=== PATIENT | male | born 2000 | race Caucasian/White ===

== ENCOUNTER 2019-06-18 16:16 | Emergency (ER) | payer OTHER, BC ==
[2019-06-18 16:29] VITALS: BP 150/88; PULSE 91
[2019-06-18] MEDS ORDERED: Diphtheria,Pertussis(Acell),Tetanus Vaccine 0.5 ML Syringe IM ONE (16:29)
[2019-06-18] MEDS ORDERED: Sodium Chloride 0.9% 10 ML Syringe FLUSH PRN (16:29)
[2019-06-18] MEDS ORDERED: ceFAZolin 1 GM in Premix Bag 1 BAG IV ONE (16:29)
--- NOTE | 2019-06-18 16:49 | EDM.PDOC ---
ED HPI GENERAL MEDICAL PROBLEM - General Chief Complaint: Upper Extremity Injury/Pain Stated Complaint: LT PINKY SKIN IS STRIPPED OFF Time Seen by Provider: 06/18/19 16:27 Source of Information: Reports: Patient History Limitations: Reports: No Limitations - History of Present Illness INITIAL COMMENTS - FREE TEXT/NARRATIVE: Patient's unfortunate 19-year-old male who presents emergency Department today with complaint of partially dictation of a left small finger. He was in his normal state of health until approximately 1 PM this afternoon when he was working on the oil rig and the tongs caught his left finger which caused a irritation of the distal third of his distal phalanx and in no full vision of the dorsum skin to the middle phalanx Left Finger-Little Pain Score (Numeric/FACES): 0 - Related Data Allergies Allergy/AdvReac Type Severity Reaction Status Date / Time No Known Allergies Allergy Verified 02/29/16 16:43 Home Meds: Home Meds . [No Known Home Meds] 06/18/19 [History] Past Medical History - Past Health History Medical/Surgical History: Denies Medical/Surgical History Musculoskeletal History: Reports: Other (See Below) Other Musculoskeletal History: fractured left arm 2016-has pins and plates Social & Family History - Tobacco Use Smoking Status *Q: Current Every Day Smoker Years of Tobacco use: 5 Packs/Tins Daily: 0.2 - Caffeine Use Caffeine Use: Reports: None - Recreational Drug Use Recreational Drug Use: No Review of Systems - Review of Systems Review Of Systems: See Below Musculoskeletal: Reports: Hand Pain, Joint Swelling ED EXAM, GENERAL - Physical Exam Exam: See Below Exam Limited By: No Limitations General Appearance: Alert, WD/WN, Mild Distress Head: Atraumatic, Normocephalic Neck: Normal Inspection, Supple, Non-Tender, Full Range of Motion Respiratory/Chest: No Respiratory Distress, Lungs Clear, Normal Breath Sounds, No Accessory Muscle Use, Chest Non-Tender Cardiovascular: Normal Peripheral Pulses, Regular Rate, Rhythm, No Edema, No Gallop, No JVD, No Murmur, No Rub GI/Abdominal: Normal Bowel Sounds, Soft, Non-Tender Back Exam: Normal Inspection, Full Range of Motion, NT Extremities: Other (Patient has a palpitation of the distal third of the distal phalanx of the left small finger with avulsion of the skin to the middle phalanx on the dorsum of the left small finger no other trauma) Neurological: Alert, Oriented Skin Exam: Warm, Dry, No Rash Course - Vital Signs Last Recorded V/S: Last Vital Signs Temp 98.9 F 06/18/19 16:28 Pulse 91 06/18/19 16:28 Resp 20 06/18/19 16:28 BP 150/88 H 06/18/19 16:28 Pulse Ox 99 06/18/19 16:28 - Orders/Labs/Meds Orders: Active Orders 24 hr Category Date Time Status Vaccines to be Administered [RC] PER UNIT ROUTINE Care 06/18/19 16:30 Active Sodium Chloride 0.9% [Saline Flush] Med 06/18/19 16:29 Active 10 ml FLUSH ASDIRECTED PRN Saline Lock Insert [OM.PC] Stat Oth 06/18/19 16:29 Ordered Medication Orders Sodium Chloride (Saline Flush) 10 ml FLUSH ASDIRECTED PRN PRN Reason: Keep Vein Open Last Admin: 06/18/19 16:50 Dose: 10 ml Meds: Medications Generic Name Dose Route Start Last Admin Trade Name Freq PRN Reason Stop Dose Admin Sodium Chloride 10 ml 06/18/19 16:29 06/18/19 16:50 Saline Flush FLUSH 10 ml ASDIRECTED PRN Administration Keep Vein Open Discontinued Medications Generic Name Dose Route Start Last Admin Trade Name Freq PRN Reason Stop Dose Admin Diphtheria/Tetanus/Acell Pertussis 0.5 ml 06/18/19 16:29 06/18/19 16:52 Adacel IM 06/18/19 16:30 0.5 ml .ONCE ONE Administration Cefazolin Sodium/Dextrose 1 gm 50 mls @ 100 mls/hr 06/18/19 16:29 06/18/19 16 :51 / Premix IV 06/18/19 16:58 100 mls/hr ONETIME ONE Administration Morphine Sulfate 2 mg 06/18/19 17:15 Morphine IVPUSH 06/18/19 17:16 ONETIME ONE Ondansetron HCl 4 mg 06/18/19 17:15 Zofran IVPUSH 06/18/19 17:16 ONETIME ONE - Re-Assessments/Exams Free Text/Narrative Re-Assessment/Exam: Amputation distal third left distal phalanx small finger Free Text/Narrative Re-Assessment/Exam: 06/18/19 17:22 Scars case with at [facility] who accepts patient in transfer Departure - Departure Time of Disposition: 17:22 Disposition: DC/Tfer to Hospice-Med Fac [facility] Clinical Impression: Amputation of finger of left hand Qualifiers: Encounter type: initial encounter Qualified Code(s): S68.119A - Complete traumatic metacarpophalangeal amputation of unspecified finger, initial encounter - Discharge Information Referrals: PCP,None [Primary Care Provider] - Forms: ED Department Discharge Sepsis Event Note - Evaluation Sepsis Screening Result: No Definite Risk - Focused Exam Vital Signs: Vital Signs Temp Pulse Resp BP Pulse Ox 06/18/19 16:28 98.9 F 91 20 150/88 H 99 Date Exam was Performed: 06/18/19 Time Exam was Performed: 17: - My Orders Last 24 Hours: My Active Orders 06/18/19 16:29 Sodium Chloride 0.9% [Saline Flush] 10 ml FLUSH ASDIRECTED PRN Saline Lock Insert [OM.PC] Stat 06/18/19 16:30 Vaccines to be Administered [RC] PER UNIT ROUTINE - Assessment/Plan Last 24 Hours: My Active Orders 06/18/19 16:29 Sodium Chloride 0.9% [Saline Flush] 10 ml FLUSH ASDIRECTED PRN Saline Lock Insert [OM.PC] Stat 06/18/19 16:30 Vaccines to be Administered [RC] PER UNIT ROUTINE
[2019-06-18] MEDS ORDERED: Morphine 2 MG/ML Syringe IVPUSH ONE (17:15)
[2019-06-18] MEDS ORDERED: Ondansetron 4 MG/2 ML SDV IVPUSH ONE (17:15)
--- NOTE | 2019-06-18 17:15 | CR ---
Left hand: Four views of the left hand were obtained. Soft tissue and bony amputation is noted within the distal left 5th finger. Small bony densities which are compatible with old injury is noted off the ulnar styloid process. Bone island is noted within the navicular bone. Plate and screws are partially seen within the distal radius and ulna. No additional abnormality is appreciated. Impression: 1. Soft tissue and bony amputation within the distal left 5th finger. 2. Other findings which are felt to be incidental. Diagnostic code #3 This report was dictated in [place] Standard Time
== END 2019-06-18 18:00 | disposition hospice, inpatient (51) ==
LOC: JD.ED 16:16
DX: S68.117A Complete traumatic metacarpophalangeal amputation of left little finger, initial encounter (principal); F17.210 Nicotine dependence, cigarettes, uncomplicated; Z23 Encounter for immunization; W23.0XXA Caught, crushed, jammed, or pinched between moving objects, initial encounter
CPT/HCPCS: 73130; 90471; 90715; 96365; 96375; 99285; J0690; J2270; J2405; 99284

== ENCOUNTER 2020-02-04 12:54 | Emergency (ER) | payer BC, OTHER ==
[2020-02-04 13:07] VITALS: BP 117/72; PULSE 68
--- NOTE | 2020-02-04 13:44 | CR ---
Left forearm: 2 views of the left forearm were obtained. Comparison: Prior fluoroscopic spot view study showing operative reduction and fixation dated 03/01/16. Plate and screws are noted within the distal radius and ulna. Hardware fixes old healed fractures. 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 No acute abnormality is appreciated. No abnormal lucency around the hardware is seen. Impression: 1. Findings as noted above. 2. Nothing acute is appreciated. Diagnostic code #2 This report was dictated in MDT
--- NOTE | 2020-02-04 14:04 | EDM.PDOC ---
ED HPI GENERAL MEDICAL PROBLEM - General Chief Complaint: Upper Extremity Injury/Pain Stated Complaint: L ARM INJURY Time Seen by Provider: 02/04/20 13:05 Source of Information: Reports: Patient History Limitations: Reports: No Limitations - History of Present Illness INITIAL COMMENTS - FREE TEXT/NARRATIVE: Patient is a 20-year-old male who presents with complaints of pain to his left forearm. Back in 2016, he had a fracture of the distal radius and ulna and had ORIF completed. He states for the last month whenever he turns his wrist he feels a clicking in the area of the hardware. Today he was lifting some furniture and felt a strong pop that is in a shooting pain up his arm and made him lose strength in his hand. The pain in his hand has resolved, however he does still get shooting pains up his arm intermittently. He is concerned that he has "a loose screw ". Left Middle Arm Pain Score (Numeric/FACES): 5 - Related Data Allergies Allergy/AdvReac Type Severity Reaction Status Date / Time No Known Allergies Allergy Verified 02/29/16 16:43 Home Meds: Home Meds . [No Known Home Meds] 06/18/19 [History] Past Medical History - Past Health History Medical/Surgical History: Denies Medical/Surgical History Musculoskeletal History: Reports: Amputation, Other (See Below) Other Musculoskeletal History: fractured left arm 2015-has pins and plates, left tip of pinky amputation 2019 Social & Family History - Family History Family Medical History: Noncontributory - Tobacco Use Smoking Status *Q: Never Smoker Second Hand Smoke Exposure: No - Caffeine Use Caffeine Use: Reports: None - Recreational Drug Use Recreational Drug Use: No Review of Systems - Review of Systems Review Of Systems: Comprehensive ROS is negative, except as noted in HPI. ED EXAM, GENERAL - Physical Exam Exam: See Below Exam Limited By: No Limitations General Appearance: Alert, WD/WN, No Apparent Distress Respiratory/Chest: No Respiratory Distress, Lungs Clear, Normal Breath Sounds, No Accessory Muscle Use, Chest Non-Tender Cardiovascular: Normal Peripheral Pulses, Regular Rate, Rhythm, No Edema, No Gallop, No JVD, No Murmur, No Rub Extremities: Normal Inspection, Normal Range of Motion, Non-Tender, Normal Capillary Refill, No Pedal Edema Neurological: Alert, Oriented, CN II-XII Intact, Normal Cognition, Normal Gait, Normal Reflexes, No Motor/Sensory Deficits Psychiatric: Normal Affect, Normal Mood Skin Exam: Warm, Dry, Intact, Normal Color, No Rash Course - Vital Signs Last Recorded V/S: Last Vital Signs Temp 98.5 F 02/04/20 13:04 Pulse 68 02/04/20 13:04 Resp 18 02/04/20 13:04 BP 117/72 02/04/20 13:04 Pulse Ox 97 02/04/20 13:04 - Re-Assessments/Exams Free Text/Narrative Re-Assessment/Exam: 02/04/20 14:27 X-ray of the left forearm was negative for any acute abnormalities. Hardware is in place and old fractures are healed. Called and spoke with orthopedist, Dr. Pena. He feels that there may be a tendon that is causing his symptoms. He recommends that he follow-up with him in the clinic this coming week. Discussed this with the patient he is in agreement. He will call to schedule appointment with Dr. Pena. Discharge instructions documented. Departure - Departure Time of Disposition: 14:27 Disposition: Home, Self-Care 01 Condition: Good Clinical Impression: Forearm pain Qualifiers: Laterality: left Qualified Code(s): M79.632 - Pain in left forearm - Discharge Information *PRESCRIPTION DRUG MONITORING PROGRAM REVIEWED*: No *COPY OF PRESCRIPTION DRUG MONITORING REPORT IN PATIENT LEONARDO: No Referrals: Kirby Pena MD [Physician] - Forms: ED Department Discharge Additional Instructions: You were seen in the emergency department today for pain to your left forearm after lifting furniture as well as a one-month history of clicking in the area of your hardware with rotating your wrist. An x-ray of your forearm was completed and was found to be normal. We did speak with Dr. Pena and he is concerned that your tendon could be causing the symptoms. He requested that you follow-up with him in the clinic this coming week. Recommend that you call today to schedule appointment with Dr. Pena. The number to schedule with him as listed below. You may use [id number] Tylenol or ibuprofen as needed for discomfort. Return to the ER as needed. Sepsis Event Note (ED) - Evaluation Sepsis Screening Result: No Definite Risk - Focused Exam Vital Signs: Vital Signs Temp Pulse Resp BP Pulse Ox 02/04/20 13:04 98.5 F 68 18 117/72 97
== END 2020-02-04 14:38 | disposition home or self-care (01) ==
LOC: JD.ED 12:54
DX: M79.632 Pain in left forearm (principal)
CPT/HCPCS: 73090-26-LT; 73090-LT; 99282; 99283-25

== ENCOUNTER 2020-03-18 07:37 | Day surgery (SDC) | payer OTHER ==
[~2020-03-18 07:37] MED LIST: Dexamethasone 4 MG/ML 5 ML MDV ONE; Ketorolac 30 MG/ML SDV ONE; Lactated Ringers 1,000 ML IV SCH; Lactated Ringers 1,000 ML ONE; Lidocaine 1% 4 ML ONE; Lidocaine 1%/Sod Bicarbonate in NS 8.4% 1 ML Syringe IDERM PRN; Midazolam 1 MG/ML 2 ML SDV ONE; Ondansetron 4 MG/2 ML SDV ONE; Propofol 200 MG/20 ML SDV ONE; Sodium Chloride 0.9% 10 ML Syringe FLUSH PRN; ceFAZolin 1 GM Vial ONE; fentaNYL 100 MCG/2 ML SDV ONE
[2020-03-18] MEDS ORDERED: Bupivacaine 0.25% 10 ML SDV ONE ×2 (07:52→08:39)
[2020-03-18] MEDS ORDERED: fentaNYL 100 MCG/2 ML SDV IVPUSH PRN (08:02)
[2020-03-18] MEDS ORDERED: HYDROmorphone 0.5 MG/0.5 ML Syringe IVPUSH PRN (08:02)
[2020-03-18] MEDS ORDERED: Ondansetron 4 MG/2 ML SDV IVPUSH PRN (08:02)
--- NOTE | 2020-03-18 08:02 | PCM.PREANE ---
Preanesthetic Assessment - Procedure Proposed Procedure: Left Ulna hardware removal - Anesthesia/Transfusion/Family Hx Anesthesia History: Prior Anesthesia Without Reaction Family History of Anesthesia Reaction: No - Review of Systems General: No Symptoms Pulmonary: No Symptoms Cardiovascular: No Symptoms Gastrointestinal: No Symptoms Neurological: No Symptoms Other: Reports: None (Obesity) - Physical Assessment NPO Status Date: 03/17/20 NPO Status Time: 18:00 Weight: 109 kg ASA Class: 2 Mental Status: Alert & Oriented x3 Airway Class: Mallampati = 1 Dentition: Reports: Normal Dentition Thyro-Mental Finger Breadths: 3 Mouth Opening Finger Breadths: 3 ROM/Head Extension: Full Lungs: Clear to Auscultation, Normal Respiratory Effort Cardiovascular: Regular Rate, Regular Rhythm - Lab Values: Laboratory Last Values SARS-CoV-2 (PCR) Not detected (NOT DETECT) 03/15/20 11:30 MRSA (PCR) Negative 03/15/20 11:21 - Allergies Allergies/Adverse Reactions: Allergies Allergy/AdvReac Type Severity Reaction Status Date / Time No Known Allergies Allergy Verified 03/17/20 12:29 - Anesthesia Plan Pre-Op Medication Ordered: Anxiolytic - Acknowledgements Anesthesia Type Planned: General Anesthesia Pt an Appropriate Candidate for the Planned Anesthesia: Yes Alternatives and Risks of Anesthesia Discussed w Pt/Guardian: Yes Pt/Guardian Understands and Agrees with Anesthesia Plan: Yes PreAnesthesia Questionnaire - Past Health History Medical/Surgical History: Denies Medical/Surgical History HEENT History: Reports: Impaired Vision, Other (See Below) Other HEENT History: wears glasses Cardiovascular History: Reports: None Respiratory History: Reports: None Gastrointestinal History: Reports: None Genitourinary History: Reports: None SPECIALIST ICU History: Reports: None Musculoskeletal History: Reports: Other (See Below) Other Musculoskeletal History: left arm fracture with surgical repair, finger amputation Neurological History: Reports: None Psychiatric History: Reports: None Endocrine/Metabolic History: Reports: None Hematologic History: Reports: None Immunologic History: Reports: None Oncologic (Cancer) History: Reports: None Dermatologic History: Reports: None - Past Surgical History Head Surgeries/Procedures: Reports: None HEENT Surgical History: Reports: Tonsillectomy Cardiovascular Surgical History: Reports: None Respiratory Surgical History: Reports: None GI Surgical History: Reports: None Female Surgical History: Reports: None Male Surgical History: Reports: None Endocrine Surgical History: Reports: None Neurological Surgical History: Reports: None Musculoskeletal Surgical History: Reports: None Oncologic Surgical History: Reports: None Dermatological Surgical History: Reports: None - SUBSTANCE USE Smoking Status *Q: Never Smoker Recreational Drug Use History: No - HOME MEDS Home Medications: Home Meds Multivitamin [Daily Dewayne] 1 tab PO DAILY 03/17/20 [History] Acetaminophen/HYDROcodone [[place] 325-5 MG] 1 - 2 tab PO Q6H PRN #20 tablet 03/18/20 [Rx] - CURRENT (IN HOUSE) MEDS Current Meds: Current Medications Lactated Ringer's (Ringers, Lactated) 1,000 mls @ 125 mls/hr IV ASDIRECTED ANDREAS Stop: 03/18/20 23:00 Lidocaine/Sodium Bicarbonate (Buffered Lidocaine 1% In Ns 8.4%) 0.25 ml IDERM ONETIME PRN PRN Reason: Prior to IV Start Stop: 03/18/20 18:00 Sodium Chloride (Saline Flush) 10 ml FLUSH ASDIRECTED PRN PRN Reason: Keep Vein Open Stop: 03/18/20 18:00 Discontinued Medications Bupivacaine HCl (Sensorcaine-Mpf 0.25%) Confirm Administered Dose 10 ml .ROUTE .STK-MED ONE Stop: 03/18/20 07:53 Cefazolin Sodium (Ancef) Confirm Administered Dose 2 gm .ROUTE .STK-MED ONE Stop: 03/18/20 07:04 Dexamethasone (Dexamethasone) Confirm Administered Dose 20 mg .ROUTE .STK-MED ONE Stop: 03/18/20 07:05 Fentanyl (Sublimaze) Confirm Administered Dose 100 mcg .ROUTE .STK-MED ONE Stop: 03/18/20 07:05 Lactated Ringer's (Ringers, Lactated) Confirm Administered Dose 1,000 mls @ as directed .ROUTE .STK-MED ONE Stop: 03/18/20 07:04 Lidocaine HCl (Xylocaine-Mpf 1%) Confirm Administered Dose 4 mls @ as directed .ROUTE .STK-MED ONE Stop: 03/18/20 07:05 Ketorolac Tromethamine (Toradol) Confirm Administered Dose 30 mg .ROUTE .STK-MED ONE Stop: 03/18/20 07:04 Midazolam HCl (Versed 1 Mg/Ml) Confirm Administered Dose 2 mg .ROUTE .STK-MED ONE Stop: 03/18/20 07:05 Ondansetron HCl (Zofran) Confirm Administered Dose 4 mg .ROUTE .STK-MED ONE Stop: 03/18/20 07:04 Propofol (Diprivan 20 Ml) Confirm Administered Dose 400 mg .ROUTE .STK-MED ONE Stop: 03/18/20 07:04
[2020-03-18] MEDS ORDERED: HYDROmorphone 0.5 MG/0.5 ML Syringe ONE (08:25)
--- NOTE | 2020-03-18 09:23 | CR ---
Left wrist: Single fluoroscopic spot view of the left wrist was obtained utilizing C-arm device. Comparison: Prior left forearm study of 02/04/20. Study shows removal of plate and screws within the distal ulnar shaft. 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 Plate and screws remain within the distal radius. Fluoroscopy time given is 2 seconds. Impression: 1. Procedural study as described above. Diagnostic code #2 This report was dictated in MDT
--- NOTE | 2020-03-18 09:42 | PCM.POSTAN ---
POST ANESTHESIA ASSESSMENT - MENTAL STATUS Mental Status: Somnolent - VITAL SIGNS Vital Signs: Last Vital Signs Temp 36.7 C 03/18/20 07:45 Pulse 75 03/18/20 07:45 Resp 16 03/18/20 07:45 BP 127/79 03/18/20 07:45 Pulse Ox 96 03/18/20 07:45 0934 121/75 65 14 100% 97.3F - RESPIRATORY Respiratory Status: Respiratory Rate WNL, Airway Patent, O2 Saturation Stable, Supplemental Oxygen - CARDIOVASCULAR CV Status: Pulse Rate WNL, Blood Pressure Stable - GASTROINTESTINAL GI Status: No Symptoms - PAIN Pain Score: 0 - POST OP HYDRATION Hydration Status: Adequate & Stable
[2020-03-18] MEDS ORDERED: Ketorolac 30 MG/ML SDV IVPUSH ONE ×2 (10:15→13:00)
--- NOTE | 2020-03-18 10:34 | PCM48HPAN ---
Post Anesthesia Note - EVALUATION WITHIN 48HRS OF ANESTHETIC Vital Signs in Normal Range: Yes Patient Participated in Evaluation: Yes Respiratory Function Stable: Yes Airway Patent: Yes Cardiovascular Function Stable: Yes Hydration Status Stable: Yes Pain Control Satisfactory: Yes Nausea and Vomiting Control Satisfactory: Yes Mental Status Recovered: Yes Vital Signs: Last Vital Signs Temp 36.4 C 03/18/20 10:10 Pulse 55 L 03/18/20 10:10 Resp 16 03/18/20 10:10 BP 133/79 03/18/20 10:10 Pulse Ox 96 03/18/20 10:10
[2020-03-18 10:38] VITALS: BP 126/79; PULSE 64
--- NOTE | 2020-03-25 13:26 | PCM.OPNOTE ---
- General Post-Op/Procedure Note Date of Surgery/Procedure: 03/18/20 Operative Procedure(s): removal of deep hardware left ulna Pre Op Diagnosis: painful hardware left ulna Post-Op Diagnosis: Same Anesthesia Technique: General LMA, Local Primary Surgeon: Kirby Pena Anesthesia Provider: Aisha Medrano EBL in mLs: 5 Complications: None Condition: Good
--- NOTE | 2020-03-25 16:07 | OR ---
DATE OF OPERATION: 03/18/2020 SURGEON: Kirby Pena MD OPERATIVE PROCEDURE: Removal of deep hardware, left ulna. PREOPERATIVE DIAGNOSIS: Painful hardware, left ulna. POSTOPERATIVE DIAGNOSIS: Painful hardware, left ulna. ANESTHESIA: General LMA with local. TOY DESIGNER: None. ANESTHESIA PROVIDER: Leila Ayers. ESTIMATED BLOOD LOSS: 5 mL. COMPLICATIONS: None. CONDITION: Stable. DESCRIPTION OF PROCEDURE: The patient was identified in the preoperative holding area. Proper site was marked and identified by the surgeon. The patient was taken back to the operative theater where after adequate anesthesia, the patient's left upper extremity had a nonsterile tourniquet applied and then was sterilely prepped and draped in the usual sterile fashion. OR time-out was performed. The patient received 2 g IV Ancef. At this time, left upper extremity was exsanguinated and tourniquet was insufflated to 220 mmHg. Previous incision was utilized. This was taken down between the ECU and FCU tendon. This was taken to the plate. There was a small amount of bony overgrowth noted, but otherwise no signs of infection or other issues. Utilizing the previous screwdriver, all remaining screws were removed and the plate was removed. The patient was noted to have bony overgrowth, so I did use a rasp as well as a rongeur to smooth out any parts of bone. I did use a curette to cure out all the screw holes and then adequate saline was irrigated through the wound. I did utilize C-arm fluoroscopy to make sure the bone was good and then all plates and screws were removed. At this time, 3-0 Vicryl was used subcutaneously and carlos were used for closure of the skin. The patient tolerated the procedure well and sent to PACU in stable condition in a sterile soft dressing. OPERATION PERFORMED: MMODAL /[id number]
== END 2020-03-18 10:37 | disposition home or self-care (01) ==
LOC: JD.SDS 07:37
PROVIDERS: ATTEND Orthopaedic Surgery
DX: T84.84XA Pain due to internal orthopedic prosthetic devices, implants and grafts, initial encounter (principal); Z01.812 Encounter for preprocedural laboratory examination; Z20.828 Contact with and (suspected) exposure to other viral communicable diseases
CPT/HCPCS: 20680; 76000; 87635; 87641; J0690; J1100; J1170; J1885; J2001; J2250; J2704; J3490; J7120; 01830; J2405; J3010; U0002

== ENCOUNTER 2020-05-08 19:41 | Emergency (ER) | payer OTHER ==
[2020-05-08] MEDS ORDERED: Sodium Chloride 0.9% 10 ML Syringe FLUSH PRN (20:06)
[2020-05-08] MEDS ORDERED: Ondansetron 4 MG/2 ML SDV IVPUSH ONE (20:06)
[2020-05-08] MEDS ORDERED: Sodium Chloride 0.9% 1,000 ML IV SCH (20:15)
--- NOTE | 2020-05-08 20:25 | EDM.PDOC ---
ED HPI GENERAL MEDICAL PROBLEM - General Chief Complaint: Abdominal Pain Stated Complaint: RIGHT SIDE PAIN Time Seen by Provider: 05/08/20 20:03 Source of Information: Reports: Patient, RN Notes Reviewed History Limitations: Reports: No Limitations - History of Present Illness INITIAL COMMENTS - FREE TEXT/NARRATIVE: Patient is a 20-year-old male who presents to the ED for the evaluation of his right lower quadrant abdominal pain. He states that pain started at around 4 PM today. He states it is pretty intense right away sharp and stabbing, and rates it about a 5 out of 10 at this time. He notes that he is a very high pain threshold, so he is not entirely sure how painful it would be. He notes that it is in his right lower quadrant has not radiated anywhere. He is denying any fevers or chills, notes that his bowel movement was normal for him yesterday but have not had one today. He ate last at lunchtime, she he did get nauseated when the pain happened, he tried to make himself vomit but he could not make that happen. He notes that he is normally regular with his bowel movements and is not having any issues there, he is denying any urinary issues. He has not had any fevers or chills, cough or shortness of breath, he further denies any history of kidney stones or abdomen issues. He notes that he called a family member who used to be a doctor, and they told him to come to the ER for evaluation. Patient still retains his appendix and has not had any prior abdomen surgeries. Other Treatments CARGOMAN: none Right Lower Abdomen Pain Score (Numeric/FACES): 5 - Related Data Allergies Allergy/AdvReac Type Severity Reaction Status Date / Time No Known Allergies Allergy Verified 03/18/20 08:50 Home Meds: Home Meds Multivitamin [Daily Dewayne] 1 tab PO DAILY 03/17/20 [History] Past Medical History HEENT History: Reports: Impaired Vision, Other (See Below) Other HEENT History: wears glasses Musculoskeletal History: Reports: Other (See Below) Other Musculoskeletal History: left arm fracture with surgical repair, Left distal pinky finger amputation - Past Surgical History HEENT Surgical History: Reports: Tonsillectomy Social & Family History - Family History Family Medical History: Noncontributory - Tobacco Use Tobacco Use Status *Q: Never Tobacco User - Caffeine Use Caffeine Use: Reports: Energy Drinks - Recreational Drug Use Recreational Drug Use: No ED ROS GENERAL - Review of Systems Review Of Systems: Comprehensive ROS is negative, except as noted in HPI. ED EXAM, GI/ABD - Physical Exam Exam: See Below Exam Limited By: No Limitations General Appearance: Alert, WD/WN, No Apparent Distress Eyes: Bilateral: Normal Appearance Respiratory/Chest: No Respiratory Distress, Lungs Clear, Normal Breath Sounds, No Accessory Muscle Use, Chest Non-Tender Cardiovascular: Normal Peripheral Pulses, Regular Rate, Rhythm, No Murmur GI/Abdominal Exam: Normal Bowel Sounds, Soft, No Distention, No Mass, Tender (RLQ tenderness with direct palpation; with no rebound tenderness) Extremities: Normal Inspection, Normal Capillary Refill Neurological: Alert, Oriented, Normal Cognition, No Motor/Sensory Deficits Psychiatric: Normal Affect, Normal Mood Skin Exam: Warm, Dry, Intact, Normal Color, No Rash Course - Vital Signs Last Recorded V/S: Last Vital Signs Temp 98.0 F 05/08/20 20:07 Pulse 62 05/08/20 20:07 Resp 20 05/08/20 20:07 BP 118/73 05/08/20 20:07 Pulse Ox 95 05/08/20 20:07 - Orders/Labs/Meds Orders: Active Orders 24 hr Category Date Time Status Peripheral IV Care [RC] . DIRECTED Care 05/08/20 20:06 Active Abdomen Pelvis w Cont [CT] Stat Exams 05/08/20 20:06 Ordered Sodium Chloride 0.9% [Normal Saline] 1,000 ml Med 05/08/20 20:15 Active IV ASDIRECTED Sodium Chloride 0.9% [Normal Saline] 100 ml Med 05/08/20 22:00 Active IV ASDIRECTED Sodium Chloride 0.9% [Normal Saline] 100 ml Med 05/08/20 22:15 Active IV ASDIRECTED Sodium Chloride 0.9% [Saline Flush] Med 05/08/20 20:06 Active 10 ml FLUSH ASDIRECTED PRN Sodium Chloride 0.9% [Saline Flush] Med 05/08/20 22:00 Active 10 ml FLUSH BOLUS Peripheral IV Insertion Adult [OM.PC] Routine Oth 05/08/20 20:06 Ordered Medication Orders Sodium Chloride (Normal Saline) 1,000 mls @ 999 mls/hr IV ASDIRECTED ANDREAS Last Admin: 05/08/20 20:24 Dose: 999 mls/hr Documented by: [email or web address] Sodium Chloride (Normal Saline) 100 mls @ 60 mls/hr IV ASDIRECTED ANDREAS Sodium Chloride (Normal Saline) 100 mls @ 60 mls/hr IV ASDIRECTED ANDREAS Sodium Chloride (Saline Flush) 10 ml FLUSH ASDIRECTED PRN PRN Reason: Keep Vein Open Last Admin: 05/08/20 20:24 Dose: 10 ml Documented by: [id number] Sodium Chloride (Saline Flush) 10 ml FLUSH BOLUS ANDREAS Labs: Laboratory Tests 05/08/20 05/08/20 05/08/20 Range/Units 20:25 20:25 21:41 WBC 7.20 (4.23-9.07) K/mm3 RBC 4.50 L (4.63-6.08) M/mm3 Hgb 12.9 L D (13.7-17.5) gm/dl Hct 38.3 L (40.1-51.0) % MCV 85.1 (79.0-92.2) fl MCH 28.7 (25.7-32.2) pg MCHC 33.7 (32.2-35.5) g/dl RDW Std Deviation 40.4 (35.1-43.9) fL Plt Count 247 (163-337) K/mm3 MPV 10.4 (9.4-12.3) fl Neutrophils % (Manual) 61 H (40-60) % Band Neutrophils % 0 (0-10) % Lymphocytes % (Manual) 29 (20-40) % Atypical Lymphs % 0 % Monocytes % (Manual) 8 (2-10) % Eosinophils % (Manual) 2 (0.8-7.0) % Basophils % (Manual) 0 L (0.2-1.2) Platelet Estimate Adequate RBC Morph Comment Normal Sodium 138 (136-145) mEq/L Potassium 3.4 L (3.5-5.1) mEq/L Chloride 103 (98-107) mEq/L Carbon Dioxide 26 (21-32) mEq/L Anion Gap 12.4 (5-15) BUN 14 (7-18) mg/dL Creatinine 1.0 (0.7-1.3) mg/dL Est Cr Clr Drug Dosing 127.18 mL/min Estimated GFR (MDRD) > 60 (>60) mL/min BUN/Creatinine Ratio 14.0 (14-18) Glucose 90 (74-106) mg/dL Calcium 9.3 (8.5-10.1) mg/dL Total Bilirubin 0.5 (0.2-1.0) mg/dL AST 23 (15-37) U/L ALT 40 (16-63) U/L Alkaline Phosphatase 68 (46-116) U/L C-Reactive Protein 0.2 (<1.0) mg/dL Total Protein 7.5 (6.4-8.2) g/dl Albumin 4.0 (3.4-5.0) g/dl Globulin 3.5 gm/dL Albumin/Globulin Ratio 1.1 (1-2) Urine Color Yellow (Yellow) Urine Appearance Clear (Clear) Urine pH 6.5 (5.0-8.0) Ur Specific Challenge 1.015 (1.005-1.030) Urine Protein Negative (Negative) Urine Glucose (UA) Negative (Negative) Urine Ketones Negative (Negative) Urine Occult Blood Negative (Negative) Urine Nitrite Negative (Negative) Urine Bilirubin Negative (Negative) Urine Urobilinogen 0.2 (0.2-1.0) Ur Leukocyte Esterase Negative (Negative) Urine RBC 0-5 (0-5) /hpf Urine WBC 0-5 (0-5) /hpf Ur Squamous Epith Cells 0-5 (0-5) /hpf Urine Bacteria Rare (FEW) /hpf Urine Mucus Not seen (FEW) /hpf Meds: Medications Generic Name Dose Route Start Last Admin Trade Name Freq PRN Reason Stop Dose Admin Sodium Chloride 1,000 mls @ 999 mls/hr 05/08/20 20:15 05/08/20 20:24 Normal Saline IV 999 mls/hr ASDIRECTED ANDREAS Administration Sodium Chloride 100 mls @ 60 mls/hr 05/08/20 22:00 Normal Saline IV ASDIRECTED ANDREAS Sodium Chloride 100 mls @ 60 mls/hr 05/08/20 22:15 Normal Saline IV ASDIRECTED ANDREAS Sodium Chloride 10 ml 05/08/20 20:06 05/08/20 20:24 Saline Flush FLUSH 10 ml ASDIRECTED PRN Administration Keep Vein Open Sodium Chloride 10 ml 05/08/20 22:00 Saline Flush FLUSH BOLUS ANDREAS Discontinued Medications Generic Name Dose Route Start Last Admin Trade Name Freq PRN Reason Stop Dose Admin Diatrizoate Meglum/Diatrizoate Sod 90 ml 05/08/20 21:57 Gastrografin 37% PO 05/08/20 21:58 ONETIME ONE Diatrizoate Meglum/Diatrizoate Sod 90 ml 05/08/20 22:02 Gastrografin 37% PO 05/08/20 22:03 ONETIME ONE Iopamidol 100 ml 05/08/20 21:57 Isovue-300 (61%) IVPUSH 05/08/20 21:58 ONETIME ONE Ondansetron HCl 4 mg 05/08/20 20:06 05/08/20 20:24 Zofran IVPUSH 05/08/20 20:07 4 mg ONETIME ONE Administration - Re-Assessments/Exams Free Text/Narrative Re-Assessment/Exam: 05/08/20 20:25 Patient presents to the ED for his right lower quadrant abdominal pain. Have ordered labs, IV to be placed along with an abdomen pelvis CT for further evaluation. 05/08/20 21:23 Patient's labs are essentially unremarkable, CT is still pending at this time. 05/08/20 22:[address] has been read, impression #1 was nonspecific increased attenuation of retroperitoneal fat and scattered 3 mm retroperitoneal lymph nodes. This may be acute or chronic and is nonspecific. Negative for acute appendicitis or obstructing urolithiasis. There are 2 smoothly marginated air locules in the right hemipelvis, adjacent to the right sacroiliac joint. There is no free peritoneal air or mesenteric air in the abdomen or the pelvis. Have been in contact with [facility] regarding these air locules, as have not seen this reported ever and just wanted clarification. But I do suspect the patient is suffering from mesenteric adenitis. We will likely discharge him home with general recommendations. Departure - Departure Time of Disposition: 22:56 Disposition: Home, Self-Care 01 Condition: Good Clinical Impression: Retroperitoneal lymphadenopathy - Discharge Information *PRESCRIPTION DRUG MONITORING PROGRAM REVIEWED*: No *COPY OF PRESCRIPTION DRUG MONITORING REPORT IN PATIENT LEONARDO: No Instructions: Lymphadenopathy Referrals: PCP,None [Primary Care Provider] - Forms: ED Department Discharge Additional Instructions: You were seen in this ER for your right lower quadrant abdominal pain. Your CT demonstrated that you have a few lymph nodes in this area that are inflamed, which would be consistent with peritoneal adenitis. The radiologist does recommend you follow-up with your primary care provider, to make sure that they are observing this finding. Your CT demonstrated no sign of acute appendicitis at this time, and your labs were in consistent with acute appendicitis. You should take 600 mg ibuprofen every 6 hours as needed for further pain relief. Do not exceed 3200 mg ibuprofen in a 24-hour time span. The retroperitoneal lymphadenopathy that was found on your CT today, may either be an acute finding or chronic and nonspecific, but you should follow-up with a primary care provider for further evaluation. Our clinic number [phone], any family practice provider would be able to provide you with the services. Please return to the ED if your symptoms change or worsen. Sepsis Event Note (ED) - Evaluation Sepsis Screening Result: No Definite Risk - Focused Exam Vital Signs: Vital Signs Temp Pulse Resp BP Pulse Ox 05/08/20 20:07 98.0 F 62 20 118/73 95 - My Orders Last 24 Hours: My Active Orders 05/08/20 20:06 Peripheral IV Care [RC] . DIRECTED Abdomen Pelvis w Cont [CT] Stat Sodium Chloride 0.9% [Saline Flush] 10 ml FLUSH ASDIRECTED PRN Peripheral IV Insertion Adult [OM.PC] Routine 05/08/20 20:15 Sodium Chloride 0.9% [Normal Saline] 1,000 ml IV ASDIRECTED 05/08/20 22:00 Sodium Chloride 0.9% [Normal Saline] 100 ml IV ASDIRECTED Sodium Chloride 0.9% [Saline Flush] 10 ml FLUSH BOLUS 05/08/20 22:15 Sodium Chloride 0.9% [Normal Saline] 100 ml IV ASDIRECTED - Assessment/Plan Last 24 Hours: My Active Orders 05/08/20 20:06 Peripheral IV Care [RC] . DIRECTED Abdomen Pelvis w Cont [CT] Stat Sodium Chloride 0.9% [Saline Flush] 10 ml FLUSH ASDIRECTED PRN Peripheral IV Insertion Adult [OM.PC] Routine 05/08/20 20:15 Sodium Chloride 0.9% [Normal Saline] 1,000 ml IV ASDIRECTED 05/08/20 22:00 Sodium Chloride 0.9% [Normal Saline] 100 ml IV ASDIRECTED Sodium Chloride 0.9% [Saline Flush] 10 ml FLUSH BOLUS 05/08/20 22:15 Sodium Chloride 0.9% [Normal Saline] 100 ml IV ASDIRECTED
[2020-05-08] MEDS ORDERED: Iopamidol 612 MG/ML 100 ML Bottle IVPUSH ONE (21:57)
[2020-05-08] MEDS ORDERED: Diatrizoate Meglumine/Diatrizoate Sodium 37% 120 ML Bottle PO ONE ×2 (21:57→22:02)
[2020-05-08] MEDS ORDERED: Sodium Chloride 0.9% 10 ML Syringe FLUSH SCH (22:00)
[2020-05-08] MEDS ORDERED: Sodium Chloride 0.9% 100 ML IV SCH ×2 (22:00→22:15)
[2020-05-08 23:16] VITALS: BP 117/70; PULSE 66
--- NOTE | 2020-05-10 10:06 | CT ---
Addendum created by Sarah Alfred MD on 05/09/2020 12:05 AM Central Time ([place] & [place]): Further discussed findings associated with the retroperitoneum and the right sacroiliac joint with PLACIDO Fitzgerald on 05/09/2020 at 12:05 a.m.. Initial Report created on 05/08/2020 11:45 PM Central Time ([place] & [place]): PROCEDURE INFORMATION: Exam: CT Abdomen And Pelvis With Contrast Exam date and time: 05/08/2020 9:28 PM Age: 20 years old Clinical indication: Abdominal pain; Acute; Patient HX: Rlq pain onset 1600 today TECHNIQUE: Imaging protocol: Computed tomography of the abdomen and pelvis with intravenous contrast. Radiation optimization: All CT scans at this facility use at least one of these dose optimization techniques: automated exposure control; mA and/or kV adjustment per patient size (includes targeted exams where dose is matched to clinical indication); or iterative reconstruction. Contrast material: ISOVUE 300; Contrast volume: 98 ml; Contrast route: INTRAVENOUS (IV); Other contrast: Oral, gastrografin, 90; COMPARISON: No relevant prior studies available. FINDINGS: Lungs: Included lung bases are clear. Liver: Normal. No mass. Gallbladder and bile ducts: Normal. No calcified stones. No ductal dilation. Pancreas: Normal. No ductal dilation. Spleen: Normal. No splenomegaly. Adrenal glands: Normal. No mass. Kidneys and ureters: Normal. No hydronephrosis. Stomach and bowel: Unremarkable. No obstruction. No mucosal thickening. Appendix: No evidence of appendicitis. ROGELIO RAMY | Final Radiology Report CONFIDENTIALITY STATEMENT This report is intended only for use by the referring physician, and only in accordance with law. If you received this in error, call [phone]. Page 2 of 2 Intraperitoneal space: Unremarkable. No free air. No significant fluid collection. Vasculature: See "Lymph nodes" finding. Lymph nodes: Nonspecific mildly increased attenuation of the retroperitoneal fat in the Diann aortic region with scattered 3.0 mm lymph nodes. Findings are most prominent at the level of the distal abdominal aorta immediately proximal to the aortic bifurcation. Urinary bladder: Unremarkable as visualized. Reproductive: Unremarkable as visualized. Bones/joints: There are 2 tiny air locules adjacent to the right sacroiliac joint, measuring 2.0 mm and 6.0 mm. No adjacent inflammatory change. No acute osseous findings. Soft tissues: Unremarkable. IMPRESSION: 1. Nonspecific increased attenuation of retroperitoneal fat and scattered 3 mm retroperitoneal lymph nodes. This may be acute or chronic and is nonspecific. 2. Negative for acute appendicitis or obstructing urolithiasis. 3. There are 2 smoothly marginated air locules in the right hemipelvis, adjacent to the right sacroiliac joint. There is no free peritoneal air or mesenteric air in the abdomen or in the pelvis. Thank you for allowing us to participate in the care of your patient. Dictated and Authenticated by: Sarah Alfred MD 05/08/2020 11:45 PM Central Time ([place] & [place]) [facility]
== END 2020-05-08 23:12 | disposition home or self-care (01) ==
LOC: JD.ED 19:41
DX: R59.0 Localized enlarged lymph nodes (principal); R10.31 Right lower quadrant pain; Z90.49 Acquired absence of other specified parts of digestive tract
CPT/HCPCS: 36415; 74177; 80053; 81001; 85007; 85027; 86140; 96374; 99284; J2405; J7030; Q9963